=== PATIENT | male | born 1955 | race Caucasian/White ===

== ENCOUNTER 2018-03-07 09:17 | Day surgery (SDC) | payer BC ==
[2018-03-07] MEDS ORDERED: Sodium Chloride 0.9% 500 ML IV ONE (09:30)
[2018-03-07 10:16] LABS: BASO % 0.4 % (0.0-2.0); EOS # 0.2 K/uL (0.0-0.7); EOS % 3.6 % (0.0-4.0); HEMOGLOBIN 15.8 g/dL (12.0-18.0); LYMPH # 1.1 K/uL (1.0-4.3); LYMPH % 17.9 % (20.0-40.0); MEAN CORPUSCULAR HEMOGLOBIN 31.4 pg (27.0-31.0); MEAN CORPUSCULAR HGB CONC 34.9 g/dL (33.0-37.0); MEAN PLATELET VOLUME 8.3 fL (7.2-11.7); MONO # 0.4 K/uL (0.0-0.8); MONO % 6.5 % (0.0-10.0); NEUT # 4.6 K/uL (1.8-7.0); NEUT % 71.6 % (50.0-75.0); NRBC % 0.1 % (0.0-2.0); RBC 5.02 Mil/uL (4.40-5.90); RED CELL DISTRIBUTION WIDTH 13.1 % (11.5-14.5); WHITE BLOOD COUNT 6.4 K/uL (4.8-10.8)
[2018-03-07 10:30] LABS: ALB/GLOB RATIO 1.7 (1.0-2.1); ALBUMIN 4.1 g/dL (3.5-5.0); ALT/SGPT 40 U/L (21-72); AST/SGOT 31 U/L (17-59); BLOOD UREA NITROGEN 14 mg/dL (9-20); CALCIUM 9.1 mg/dl (8.6-10.4); GFR AFRICAN-AMERICAN > 60; GFR NON-AFRICAN AMERICAN > 60
[2018-03-07 10:33] LABS: URINE BILIRUBIN NEGATIVE (NEGATIVE); URINE BLOOD 2+ (NEGATIVE); URINE CLARITY Hazy (Clear); URINE GLUCOSE (UA) NORMAL (Normal); URINE LEUKOCYTE ESTERASE NEG Leu/uL (Negative); URINE PROTEIN 2+ mg/dL (NEGATIVE); URINE UROBILINOGEN NORMAL mg/dL (0.2-1.0)
[2018-03-07 10:39] LABS: URINE COLOR DARK RED (YELLOW)
[2018-03-07] MEDS ORDERED: cefTRIAXone IV 1 gm in Dextros 50 ML IVPB ONE ×2 (10:42→14:43)
--- NOTE | 2018-03-07 11:09 | CT ---
Date of service: 03/07/2018 PROCEDURE: CT Abdomen and Pelvis without intravenous contrast HISTORY: abd pain COMPARISON: None. TECHNIQUE: Axial and reformatted coronal and sagittal CT images of the abdomen and pelvis were obtained without IV or oral contrast administration.. Contrast dose: 0 Radiation dose: Total exam DLP = 587.15 mGy-cm. This CT exam was performed using one or more of the following dose reduction techniques: Automated exposure control, adjustment of the mA and/or kV according to patient size, and/or use of iterative reconstruction technique. FINDINGS: LOWER THORAX: Unremarkable. LIVER: Slightly heterogeneous attenuation of the liver is noted without evidence of discrete mass lesion. GALLBLADDER AND BILE DUCTS: Unremarkable. PANCREAS: Unremarkable. No gross lesion or ductal dilatation. SPLEEN: Unremarkable. ADRENALS: Unremarkable. No mass. KIDNEYS AND URETERS: Unremarkable. No hydronephrosis. No solid mass. VASCULATURE: Unremarkable. No aortic aneurysm. BOWEL: Colonic diverticulosis are noted without evidence of diverticulitis. There is no evidence of small bowel obstruction. APPENDIX: Unremarkable. Normal appendix. PERITONEUM: Unremarkable. No free fluid. No free air. LYMPH NODES: Unremarkable. No enlarged lymph nodes. BLADDER: The urinary bladder is mildly to moderately distended displaced anteriorly. There is high attenuation structure at the midline posterior lower portion of the bladder measures approximately 2 centimeter in the transverse diameter and 2.1 centimeter in the AP diameter of uncertain etiology. REPRODUCTIVE: There is large cystic structure posterior to the urinary bladder and superior to the prostate to the left of the midline measures 5.7 centimeter in the transverse diameter and 8.2 centimeter in the longitudinal diameter suspicious for left seminal vesicle large cyst. The prostate is heterogeneous mildly enlarged. There is linear shaped calcification noted at the midline prostate. BONES: There are scattered small sclerotic bony lesions noted in the pelvic bones of uncertain etiology may represent multiple bone islands. OTHER FINDINGS: None. IMPRESSION: No evidence of nephrolithiasis or hydronephrosis. Large cystic lesion noted posterior to the urinary bladder and anterior superior to the prostate to the left of the midline suspicious for large left seminal vesicles cyst. Focal high attenuation noted at the midline urinary bladder base of uncertain etiology. The possibility of bladder neoplasm should be excluded. The differential considerations includes congenital anomaly in the left seminal vesicles and base of the urinary bladder. Further assessment by enhanced CT or ultrasound is recommended. Distended urinary bladder displaced anteriorly by above-mentioned cystic lesion. Colonic diverticulosis without evidence of diverticulitis. No CT evidence of cholecystitis pancreatitis or appendicitis.
--- NOTE | 2018-03-07 11:33 | C.PDOC ---
History Of Present Illness 62 y/o male, with past medical history of asthma, sent to ED by Dr. Anitra Yip for evaluation of blood in his urine since last night around 01:30. He states he woke up last night, had difficulty urinating, and felt something traveling down his urethra, and noticed blood when he looked down. He also reports brown discharge in his urine. Otherwise, denies abdominal pain, nausea, vomiting, back pain, fever, or any other complaints at this time. Time Seen by Provider: 03/07/18 09:29 Chief Complaint (Nursing): Male Genitourinary History Per: Patient History/Exam Limitations: no limitations Onset/Duration Of Symptoms: Days Current Symptoms Are (Timing): Still Present Quality Of Discomfort: "Pain" Associated Symptoms: Urinary Symptoms Past Medical History Reviewed: Historical Data, Nursing Documentation, Vital Signs Vital Signs: Last Vital Signs Temp 99 F 03/07/18 13:25 Pulse 70 03/07/18 13:25 Resp 16 03/07/18 13:25 BP 111/65 03/07/18 13:25 Pulse Ox 98 03/07/18 13:31 - Medical History PMH: Asthma Family History: States: Unknown Family Hx - Social History Hx Alcohol Use: Yes Hx Substance Use: No - Immunization History Hx Tetanus Toxoid Vaccination: No Hx Influenza Vaccination: Yes Hx Pneumococcal Vaccination: Yes Review Of Systems Except As Marked, All Systems Reviewed And Found Negative. Constitutional: Negative for: Fever, Chills Cardiovascular: Negative for: Chest Pain, Palpitations Respiratory: Negative for: Shortness of Breath Gastrointestinal: Negative for: Nausea, Vomiting, Abdominal Pain Genitourinary: Positive for: Hematuria Musculoskeletal: Negative for: Back Pain Physical Exam - Physical Exam Appears: Non-toxic, No Acute Distress Skin: Normal Color, Warm, Dry Head: Atraumatic, Normacephalic Eye(s): bilateral: Normal Inspection Oral Mucosa: Moist Cardiovascular: Rhythm Regular Respiratory: Normal Breath Sounds, No Rales, No Rhonchi, No Wheezing Gastrointestinal/Abdominal: Soft, Tenderness (mild suprapubic), No Guarding, No Rebound Back: No CVA Tenderness Extremity: Normal ROM Neurological/Psych: Oriented x3, Normal Speech ED Course And Treatment - Laboratory Results Result Diagrams: 03/07/18 10:06 03/07/18 10:06 O2 Sat by Pulse Oximetry: 98 (RA) Pulse Ox Interpretation: Normal - CT Scan/US Abd & Pelvis CT Other Rad Studies (CT/US): Read By Radiologist, Radiology Report Reviewed CT/US Interpretation: Date of service: 03/07/2018. PROCEDURE: CT Abdomen and Pelvis without intravenous contrast. HISTORY: abd pain. COMPARISON: None. TECHNIQUE: Axial and reformatted coronal and sagittal CT images of the abdomen and pelvis were obtained without IV or oral contrast administration.. Contrast dose: 0. Radiation dose: Total exam DLP = 587.15 mGy-cm. This CT exam was performed using one or more of the following dose reduction techniques: Automated exposure control, adjustment of the mA and/or kV according to patient size, and/or use of iterative reconstruction technique. FINDINGS: LOWER THORAX : Unremarkable. LIVER: Slightly heterogeneous attenuation of the liver is noted without evidence of discrete mass lesion. GALLBLADDER AND BILE DUCTS: Unremarkable. PANCREAS: Unremarkable. No gross lesion or ductal dilatation. SPLEEN: Unremarkable. ADRENALS: Unremarkable. No mass. KIDNEYS AND URETERS: Unremarkable. No hydronephrosis. No solid mass. VASCULATURE: Unremarkable. No aortic aneurysm. BOWEL: Colonic diverticulosis are noted without evidence of diverticulitis. There is no evidence of small bowel obstruction. APPENDIX: Unremarkable. Normal appendix. PERITONEUM: Unremarkable. No free fluid. No free air. LYMPH NODES: Unremarkable. No enlarged lymph nodes. BLADDER: The urinary bladder is mildly to moderately distended displaced anteriorly. There is high attenuation structure at the midline posterior lower portion of the bladder measures approximately 2 centimeter in the transverse diameter and 2.1 centimeter in the AP diameter of uncertain etiology. REPRODUCTIVE: There is large cystic structure posterior to the urinary bladder and superior to the prostate to the left of the midline measures 5.7 centimeter in the transverse diameter and 8.2 centimeter in the longitudinal diameter suspicious for left seminal vesicle large cyst. The prostate is heterogeneous mildly enlarged. There is linear shaped calcification noted at the midline prostate. BONES: There are scattered small sclerotic bony lesions noted in the pelvic bones of uncertain etiology may represent multiple bone islands. OTHER FINDINGS: None. IMPRESSION: No evidence of nephrolithiasis or hydronephrosis. Large cystic lesion noted posterior to the urinary bladder and anterior superior to the prostate to the left of the midline suspicious for large left seminal vesicles cyst. Focal high attenuation noted at the midline urinary bladder base of uncertain etiology. The possibility of bladder neoplasm should be excluded. The differential considerations includes congenital anomaly in the left seminal vesicles and base of the urinary bladder. Further assessment by enhanced CT or ultrasound is recommended. Distended urinary bladder displaced anteriorly by above-mentioned cystic lesion. Colonic diverticulosis without evidence of diverticulitis. No CT evidence of cholecystitis pancreatitis or appendicitis. Medical Decision Making Medical Decision Making: Plan: Blood work Urinalysis Abd & Pelvis CT EKG Rocephin, IV fluids Disposition Discussed With Dr.: Anitra Yip Counseled Patient/Family Regarding: Studies Performed, Diagnosis, Need For Followup, Rx Given - Disposition Referrals: Anitra Yip MD [Staff Provider] - Disposition: HOSPITALIZED Disposition Time: 13:25 Condition: STABLE Prescriptions: Levofloxacin [Levaquin] 500 mg PO DAILY #10 tablet Tamsulosin [Flomax] 0.4 mg PO BID #10 cap Instructions: Blood in the Urine (Hematuria) in Adults Forms: [facility] (Malaysian) - POA Present On Arrival: None - Clinical Impression Clinical Impression: Hematuria - Scribe Statement The provider has reviewed the documentation as recorded by the Scribe KP All medical record entries made by the Scribe were at my direction and personally dictated by me. I have reviewed the chart and agree that the record accurately reflects my personal performance of the history, physical exam, medical decision making, and the department course for this patient. I have also personally directed, reviewed, and agree with the discharge instructions and disposition. Decision To Admit - Pt Status Changed To: Hospital Disposition Of: SDS- Endo,OR,Cath,IR - . Bed Request Type: Same Day Surgery Admitting Physician: Anitra Yip Patient Diagnosis: Hematuria
[2018-03-07 13:29] VITALS: BMI 23.9
[2018-03-07] MEDS ORDERED: Iodixanol 320 mg/ml 150 ml Bottle IV ONE (13:43)
--- NOTE | 2018-03-07 14:35 | CT ---
Date of service: 03/07/2018 PROCEDURE: CT Abdomen and Pelvis with contrast HISTORY: cistic structure on non con CT COMPARISON: Comparison is made with the previous noncontrast same-day CT of the abdomen and pelvis. TECHNIQUE: Contrast dose: 100 mL Visipaque 320. Axial and reformatted coronal and sagittal CT images of the abdomen and pelvis were obtained after IV contrast administration. Radiation dose: Total exam DLP = 638.29 mGy-cm. This CT exam was performed using one or more of the following dose reduction techniques: Automated exposure control, adjustment of the mA and/or kV according to patient size, and/or use of iterative reconstruction technique. FINDINGS: LOWER THORAX: Unremarkable. LIVER: Unremarkable. No gross lesion or ductal dilatation. GALLBLADDER AND BILE DUCTS: Unremarkable. PANCREAS: Unremarkable. No gross lesion or ductal dilatation. SPLEEN: Unremarkable. ADRENALS: Unremarkable. No mass. KIDNEYS AND URETERS: Unremarkable. No hydronephrosis. No solid mass. VASCULATURE: Unremarkable. No aortic aneurysm. BOWEL: Colonic diverticulosis are again noted without evidence of diverticulitis. . No obstruction. No gross mural thickening. APPENDIX: No evidence of appendicitis. PERITONEUM: Unremarkable. No free fluid. No free air. LYMPH NODES: Unremarkable. No enlarged lymph nodes. BLADDER: There is enhancing nodule at the posterior aspect of the urinary bladder slightly to the right of the midline measures 2.1 centimeter in the transverse diameter and 1.8 centimeter in the AP diameter suspicious for bladder neoplasm. There is also high attenuation nodule protruding from the base of the urinary bladder may represent bladder neoplasm or prostate neoplasm protruding into the bladder lumen. REPRODUCTIVE: Again noted is large cystic lesion posterior to the bladder and anterior superior to the prostate likely represent large seminal vesicle cyst or large bladder diverticulum. The prostate is mildly enlarged and heterogeneous. BONES: No acute fracture. OTHER FINDINGS: None. IMPRESSION: Enhancing nodule at the right posterior aspect of the bladder suspicious for bladder neoplasm. Further assessment is recommended. High attenuation nodule protruding at the base of the bladder may represent bladder nodule or prostate tumor protruding into the bladder lumen. Large cystic structure to the left and posterior of the bladder may represent large seminal vesicle cyst or less likely large bladder diverticulum. No evidence of lymphadenopathy in the pelvis.
[2018-03-07] MEDS ORDERED: Iohexol 240 (50 ml) ONE (14:43)
[2018-03-07] MEDS ORDERED: Lidocaine 2% Jelly (Uro-Jet) ONE ×4 (14:43→17:19)
[2018-03-07] MEDS ORDERED: Propofol 10 mg/ml Inj (20 ML) ONE ×2 (14:44→15:08)
[2018-03-07] MEDS ORDERED: Midazolam 2 MG/2 ML VIAL ONE (14:44)
[2018-03-07] MEDS ORDERED: HYDROmorphone 0.5 mg/0.5 ml ISec IVP PRN (15:42)
--- NOTE | 2018-03-07 15:43 | CP.PCM.CON ---
Past Patient History - Past Social History Smoking Status: Never Smoked - PULMONARY Hx Asthma: Yes - INTEGUMENTARY Hx Psoriasis: Yes - PSYCHIATRIC Hx Substance Use: No - SURGICAL HISTORY Other/Comment: Lt. wrist surgery - ANESTHESIA Hx Anesthesia: No Hx Anesthesia Reactions: No Meds Home Medications: Home Medication List Medication Instructions Recorded Confirmed Type Levofloxacin [Levaquin] 500 mg PO DAILY #10 tablet 03/07/18 Rx Tamsulosin [Flomax] 0.4 mg PO BID #10 cap 03/07/18 Rx Allergies/Adverse Reactions: Allergies Allergy/AdvReac Type Severity Reaction Status Date / Time latex Allergy SHORTNESS Verified 03/07/18 09:20 OF BREATH Results - Vital Signs Recent Vital Signs: Last Vital Signs Temp 99 F 03/07/18 13:25 Pulse 70 03/07/18 13:25 Resp 16 03/07/18 13:25 BP 111/65 03/07/18 13:25 Pulse Ox 98 03/07/18 13:43 - Labs Result Diagrams: 03/07/18 10:06 03/07/18 10:06 Labs: Laboratory Results - last 24 hr 03/07/18 03/07/18 03/07/18 10:06 10:06 10:06 WBC 6.4 RBC 5.02 Hgb 15.8 Hct 45.2 MCV 90.0 MCH 31.4 H MCHC 34.9 RDW 13.1 Plt Count 327 MPV 8.3 Neut % (Auto) 71.6 Lymph % (Auto) 17.9 L [place] % (Auto) 6.5 Eos % (Auto) 3.6 Baso % (Auto) 0.4 Neut # (Auto) 4.6 Lymph # (Auto) 1.1 [place] # (Auto) 0.4 Eos # (Auto) 0.2 Baso # (Auto) 0.0 Sodium 141 Potassium 4.2 Chloride 106 Carbon Dioxide 29 Anion Gap 11 BUN 14 Creatinine 0.8 Est GFR ( Amer) > 60 Est GFR (Non-Af Amer) > 60 Random Glucose 110 Calcium 9.1 Total Bilirubin 0.8 AST 31 ALT 40 Alkaline Phosphatase 65 Total Protein 6.6 Albumin 4.1 Globulin 2.5 Albumin/Globulin Ratio 1.7 Urine Color Dark red Urine Clarity Hazy Urine pH 6.0 Ur Specific [place] 1.024 Urine Protein 2+ H Urine Glucose (UA) Normal Urine Ketones Negative Urine Blood 2+ H Urine Nitrate Negative Urine Bilirubin Negative Urine Urobilinogen Normal Ur Leukocyte Esterase Neg Urine WBC (Auto) 6 H Urine RBC (Auto) 2943 H Urine Yeast (Budding) Few H Assessment & Plan - Assessment and Plan (Free Text) Assessment: IMP: Hematuria BPH Incomplete emptying Asthma, Psoriasis full note t/f YS - Date & Time Date: 03/07/18 Time: 12:30
--- NOTE | 2018-03-07 15:45 | PCM.SURG1 ---
Surgeon's Initial Post Op Note - Surgeon's Notes Surgeon: Nisreen Yip [employer] Spec: none Type of Anesthesia: General LMA Pre-Operative Diagnosis: Hematuria. BPH Operative Findings: same, bladder tumor,. Bladder diverticulum Post-Operative Diagnosis: same Operation Performed: cysto, evacuation of bladder clots. TUR-BT. Bladder bx and fulg. TUR-Bx of BN Specimen/Specimens Removed: urine, bladder tumor, bladder bx, BN Estimated Blood Loss: EBL {In ML}: 0 Blood Products Given: N/A Date of Surgery/Procedure: 03/07/18 Time of Surgery/Procedure: 15:35
[2018-03-08 00:53] VITALS: RESP 20
[2018-03-08 08:15] VITALS: BP 132/74; PULSE 80; TEMP 98.5; O2SAT 98
--- NOTE | 2018-03-09 02:50 | CON ---
Copied To: Anitra Yip MD Attending MD: Anitra Yip MD DATE: 03/08/2018 UROLOGY CONSULTATION Urology consultation provided by Dr. Anitra Yip. REASON FOR CONSULTATION: Hematuria. Abdominal pain. HISTORY OF PRESENT ILLNESS: The patient is a 62-year-old male with hematuria. The patient presents with hematuria since last night. The patient voids with fair urinary stream. He noticed slowing of the urinary stream. He was able to urinate only small amount. There was an interrupted stream. Thereafter, he was unable to urinate. The patient passed first bright red urine small amounts of dark brown urine. There has been no fever. The patient has lower abdominal pain. No flank pain. No nausea or vomiting. There is no history of previous urolithiasis. No history of previous urinary tract infection. The patient has nocturia previously, one to two times per night. No history of hypertension, diabetes, or pneumonia. No history of TB. There is a history of asthma. PAST SURGICAL HISTORY: The patient had previous right wrist surgery. SOCIAL HISTORY: The patient does not smoke. He drinks occasional wine. The patient lives with his . He has four children. 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 PHYSICAL EXAMINATION: GENERAL: The patient is a well-developed, well-nourished middle-aged male, appearing his stated age. The patient is awake and alert. VITAL SIGNS: Stable. ABDOMEN: Soft. Mild lower abdominal tenderness. There is dullness to percussion, in the area of the bladder. GENITOURINARY: Genitalia without inflammation. Normal circumcised male. Scrotal contents without inflammation. RECTAL EXAMINATION: Normal sphincter tone. Prostate is enlarged. Prostate is approximately 30 g in size, without fixation, induration, or nodularity. Prostate is smooth. IMPRESSION: Hematuria. Voiding dysfunction. Poor urinary stream. Incomplete emptying. I performed a bladder scan. The residual previously was approximately 400 mL. The repeat residual was 300 mL. The patient thereafter voided again with a poor stream. The incomplete bladder emptying and voiding symptoms may be due to bladder outlet obstruction. Hematuria maybe due to infection, inflammation, urolithiasis, and/or neoplasia. RECOMMENDATIONS AND PLAN: Urine culture. Urine cytology. Serum PSA. CT scan. Cystoscopy. Further therapy according to the patient's clinical course. Case reviewed with the patient and his family. Case reviewed with the ER attending staff. Thank you for recommending the patient for urology consultation. Anitra Yip MD
--- NOTE | 2018-03-09 04:30 | OP ---
Copied To: Anitra Yip MD Attending MD: Anitra Yip MD PROCEDURE DATE: 03/07/2018 PREOPERATIVE DIAGNOSES: Hematuria. Urinary retention. POSTOPERATIVE DIAGNOSES: Hematuria. Urinary retention. Prostatic enlargement. Bladder calculi. Bladder diverticulum. Bladder tumor. PROCEDURES: Cystoscopy. Removal of two tiny stones from the bladder. Transurethral resection of bladder tumor. Bladder biopsies and fulguration. Transurethral resection biopsy of bladder neck. Evacuation of bladder clots. Exam under anesthesia. OPERATING SURGEON: Anitra Yip MD PROCEDURE FOLLOWS: The patient was placed in the lithotomy position. Genitalia prepped and draped sterilely. Anesthesia was provided by the anesthesiologist. The patient received perioperative antibiotics. The CAT scan was reviewed. CAT scan was performed with and without IV contrast. The CAT scan revealed normal upper urinary tract. There was no lymphadenopathy. There was no hydronephrosis. There was no renal tumor. There was a hyperdense lesion in the bladder, consistent with clots. There was a cystic structure on the left posterior aspect of the bladder, consistent with bladder diverticulum. The radiologist also suggested possible seminal vesicle cyst. The patient had a plain film of the abdomen performed prior to cystoscopy. The upper urinary tracts were well visualized with the IV contrast from the CAT scan. The bladder diverticulum was well filled and was noted adjacent to the true bladder. The patient was then placed in lithotomy position. Genitalia prepped and sterilely. Anesthesia was applied by the anesthesiologist. Perioperative antibiotics were administered. A 22-[place]oc[place] cystoscope sheath was introduced under direct vision; urethra, prostate, and bladder were inspected. FINDINGS: There was no stricture in the anterior urethra. There was mild lateral lobe hypertrophy which was subocclusive. There was middle lobe hypertrophy which was occlusive at the bladder neck. There was mild bleeding from the prostatic urethra at the level of the middle lobe and the bladder neck. The bladder was inspected. There were multiple clots within the bladder which obscured visibility. The bladder clots were removed using the Lakia syringe. The bladder then was reinspected. There was noted to be moderate bladder trabeculation. There was a bladder diverticulum arising from the left posterior lateral aspect of the bladder. The bladder diverticulum was entered both with 30-degree and 70-degree lenses. There was a small clot within the bladder diverticulum which was removed. There was no mucosal lesion or stone within the bladder diverticulum. There were two tiny stones within the bladder which were irrigated free as well. Two tiny stones, which were irrigated free were less than or equal to 1 mm in size. The stones were irrigated free, although not retrieved. 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 The tumor was approximately 1 cm in size and involved the right floor of the bladder, lateral and posterior to the right ureteral orifice. In addition, adjacent to this papillary bladder tumor, there was a slight erythematous and raised mucosa. The papillary bladder tumor was also noted to have mild encrustation on its surface. The bladder was then reinspected with 70-degree lens and confirmed the above findings. The anterior and lateral baker of the bladder were normal. There were no other tumors identified. The areas of the abnormal mucosa adjacent to the bladder tumor, both medial and lateral to the bladder tumor were biopsied using cold cup biopsy forceps. The cystoscope and sheath were removed. A 26-[place]oc[place] continuous flow resectoscope sheath was introduced under direct vision with the visual obturator. The bladder tumor was resected fully. The base to the bladder tumor was resected and sent as a separate specimen for pathologic examination. Hemostasis was achieved at all biopsy sites using the electrode and the coagulating current. Hemostasis was complete. There was still mild bleeding noted at the bladder neck. Transurethral resections/biopsy of the bladder neck mucosa was performed. Fulguration was performed with Ball electrode and electrocautery. Hemostasis was complete. The bladder and prostate were reinspected. There was no further bleeding noted. There were no other lesions. The ureteral orifices were intact. The resectoscope and sheath were removed. Molina catheter was inserted. Bladder drainage was clear. Exam under anesthesia was performed. There was no abnormal pelvic mass fixation or induration. Prostate was supple and smooth, approximately 20 to 25 g in size, without fixation, induration, or nodularity. The patient was returned to supine position. The patient tolerated the procedure without complication. The patient was transferred to recovery room in satisfactory condition. Anitra Yip MD
--- NOTE | 2018-03-09 17:46 | RAD ---
Date of service: 03/07/2018 HISTORY: HEMATURIA COMPARISON: No prior. FINDINGS: BOWEL: Normal abdominal bowel gas pattern. Excreted contrast material within the urinary collecting system bilaterally. Large bladder diverticulum enhancing with excreted contrast material, as demonstrated on the CT examination from earlier on same day. Probable 2nd small bladder diverticulum as well. This is demonstrated on what is labeled last film, following presumed urinary voiding. BONES: Normal. OTHER FINDINGS: None. IMPRESSION: Large and small bladder diverticula E. Normal bowel gas pattern
[2018-03-09 22:36] LABS: TOTAL PSA 0.5 ng/mL (< or = 4.0)
== END 2018-03-08 09:50 | disposition home or self-care (01) ==
LOC: C.ER 09:17 → C.SDS 14:43 → C.9S 16:30 → C.5S 16:30 → C.SDS 03-08 09:50
PROVIDERS: ATTEND Urology
DX: C67.9 Malignant neoplasm of bladder, unspecified (principal); N21.0 Calculus in bladder; N32.3 Diverticulum of bladder; N40.1 Benign prostatic hyperplasia with lower urinary tract symptoms; R33.8 Other retention of urine; N32.89 Other specified disorders of bladder
CPT/HCPCS: 52204; 52234; 52500; 74022; 74176; 74177; 80053; 81001; 84153; 84154; 85025; 87086; 88104; 88305; 93005; 96360; 99285; J0696; J7040; Q9967